=== PATIENT | male | born 1945 | race Caucasian/White ===

== ENCOUNTER 2016-08-05 14:01 | Outpatient (CLI) | payer MEDICARE | END 2016-08-05 14:02 | disposition home or self-care (01) | DX: I10 Essential (primary) hypertension (principal) ==

== ENCOUNTER 2016-08-12 14:56 | Outpatient (CLI) | payer MEDICARE | END 2016-08-12 14:57 | disposition home or self-care (01) | DX: E03.9 Hypothyroidism, unspecified (principal) ==

== ENCOUNTER 2016-12-02 09:16 | Outpatient (CLI) | payer MEDICARE ==
[2016-12-02] MEDS ORDERED: BARIUM SULFATE 135 ML BOTTLE PO ONE (10:06)
[2016-12-02] MEDS ORDERED: BARIUM SULFATE 148 GM POWDER PO ONE (10:06)
--- NOTE | 2016-12-02 17:28 | XRAY Report ---
ESOPHAGRAM: 12/02/2016 CLINICAL INDICATION: Mid sternal discomfort. Esophagram was performed in the upright and prone positions. The esophagus is normal in caliber. Te rtiary contractions are seen. There is a small sliding hiatal hernia, which produced reflux during t he course of the study, as well as intraesophageal reflux up to the upper esophageal sphincter. No e sophageal ulceration, mass lesion, or stricturing is identified. The hypopharynx appears unremarkabl e. IMPRESSION: SMALL SLIDING HIATAL HERNIA, PRODUCING REFLUX. PRESBYESOPHAGUS. FLUOROSCOPY TIME: 1 minute 57 seconds; 21 spot images obtained. JOB #: [id number] EXT JOB #:[id number]
== END 2016-12-02 09:17 | disposition home or self-care (01) ==
LOC: DI 09:16
PROVIDERS: ATTEND Surgery
DX: K44.9 Diaphragmatic hernia without obstruction or gangrene (principal); K21.9 Gastro-esophageal reflux disease without esophagitis; K22.8 Other specified diseases of esophagus
CPT/HCPCS: 74220; A9270

== ENCOUNTER 2016-12-20 21:08 | Outpatient (CLI) | payer MEDICARE | END 2016-12-20 21:09 | disposition short-term general hospital (02) | LOC: EMS 21:08 | PROVIDERS: ATTEND Surgery | DX: R07.9 Chest pain, unspecified (principal) | CPT/HCPCS: A0425; A0427 ==

== ENCOUNTER 2016-12-28 10:17 | Outpatient (CLI) | payer MEDICARE | END 2016-12-28 10:18 | disposition home or self-care (01) | LOC: SC 10:17 | PROVIDERS: ATTEND Internal Medicine Pulmonary Disease | DX: R06.83 Snoring (principal); G47.8 Other sleep disorders; I48.91 Unspecified atrial fibrillation | CPT/HCPCS: 99203; G0463; 99212 ==

== ENCOUNTER 2017-03-11 21:33 | Outpatient (CLI) | payer MEDICARE | END 2017-03-11 21:34 | disposition home or self-care (01) | LOC: SC 21:33 | PROVIDERS: ATTEND Internal Medicine Pulmonary Disease | DX: G47.61 Periodic limb movement disorder (principal) | CPT/HCPCS: 95810 ==

== ENCOUNTER 2017-04-13 09:23 | Outpatient (CLI) | payer MEDICARE | END 2017-04-13 09:24 | disposition home or self-care (01) | LOC: SC 09:23 | PROVIDERS: ATTEND Nurse Practitioner Family | DX: G47.61 Periodic limb movement disorder (principal); I48.91 Unspecified atrial fibrillation | CPT/HCPCS: 99214; G0463; 99212 ==

== ENCOUNTER 2017-10-25 08:00 | Outpatient (CLI) | payer MEDICARE ==
[2017-10-25 17:55] LABS: BASOPHILS % (AUTO) 0.7 %; EOSINOPHILS # (AUTO) 0.1 10^3/uL (0.0-0.7); EOSINOPHILS % (AUTO) 2.6 %; HGB - HEMOGLOBIN 14.5 g/dL (14.0-18.0); LYMPHOCYTES # (AUTO) 1.9 10^3/uL (1.5-3.5); LYMPHOCYTES % (AUTO) 38.9 %; MEAN CORPUSCULAR HEMOGLOBIN 31.3 pg (27.0-31.0); MEAN CORPUSCULAR VOLUME 95.1 fL (80.0-94.0); MEAN PLATELET VOLUME 8.1 fL (7.4-11.4); MONOCYTES # (AUTO) 0.5 10^3/uL (0.0-1.0); MONOCYTES % (AUTO) 9.5 %; NEUTROPHILS # (AUTO) 2.4 10^3/uL (1.5-6.6); NEUTROPHILS % (AUTO) 48.3 %; PLT - PLATELET COUNT 239 10^3/uL (130-450); RED BLOOD COUNT 4.61 10^6/uL (4.70-6.10); RED CELL DISTRIBUTION WIDTH 12.9 % (12.0-15.0); WHITE BLOOD COUNT 4.9 x10^3/uL (4.8-10.8)
[2017-10-25 18:52] LABS: FREE T3 3.55 pg/mL (2.5-3.9)
[2017-10-25 18:55] LABS: THYROID STIMULATING HORMONE 5.13 uIU/mL (0.34-5.60)
[2017-10-25 18:59] LABS: FREE T4 (FREE THYROXINE) 0.94 ng/dL (0.58-1.64)
[2017-10-25 19:00] LABS: ALBUMIN 4.2 g/dL (3.2-5.5); ALBUMIN/GLOBULIN RATIO 1.4 (1.0-2.2); ALKALINE PHOSPHATASE 45 IU/L (42-121); ALT ALANINE AMINOTRANSFERASE 17 IU/L (10-60); AST ASPARTATE AMINOTRANSFERASE 20 IU/L (10-42); BILIRUBIN,TOTAL 0.8 mg/dL (0.2-1.0); BUN - BLOOD UREA NITROGEN 19 mg/dL (6-20); CALCIUM 9.1 mg/dL (8.5-10.3); CARBON DIOXIDE - CO2 29 mmol/L (21-32); CHLORIDE 100 mmol/L (101-111); CHOL/HDL RATIO 3.6 (<5.0); CHOLESTEROL 200 mg/dL; GFR - MDRD 74 (>89); GLUCOSE 98 mg/dL (70-100); HDL CHOLESTEROL 56 mg/dL; LDL CHOLESTEROL,CALCULATED 132 mg/dL; LDL/HDL RATIO 2.4 (<3.6); SODIUM 135 mmol/L (135-145); TOTAL PROTEIN 7.2 g/dL (6.7-8.2); VLDL CHOLESTEROL 12 mg/dL
[2017-10-25 19:10] LABS: PSA SCREEN (Z12.5) < 0.008 ng/mL (0.000-2.000)
== END 2017-10-25 08:01 | disposition home or self-care (01) ==
LOC: LAB.S 08:00
PROVIDERS: ATTEND Nurse Practitioner Family
DX: I10 Essential (primary) hypertension (principal); Z12.5 Encounter for screening for malignant neoplasm of prostate; E03.9 Hypothyroidism, unspecified
CPT/HCPCS: 36415; 80053; 80061; 84439; 84443; 84481; 85025; G0103; 83721; 84153

== ENCOUNTER 2018-02-21 06:07 | Day surgery (SDC) | payer MEDICARE ==
[2018-02-21] MEDS ORDERED: ceFAZolin 2 GM/50 ML 2 GM/50 ML BAG IV ONE (06:18)
[2018-02-21] MEDS ORDERED: LACTATED RINGERS 1,000 ML IV ONE ×2 (06:40→08:57)
--- NOTE | 2018-02-21 07:11 | ANESTHESIA ---
Pre-Anesthesia VS, & Labs - Diagnosis right inguinal hernia - Procedure right inguinal hernia repair Vital Signs: Temp Pulse Resp BP Pulse Ox 36.6 C 50 L 18 142/94 H 97 02/21/18 06:26 02/21/18 06:26 02/21/18 06:26 02/21/18 06:26 02/21/18 06:26 Height 5 ft 11 in Weight (kg) 77.9 kg - NPO >8 hours - Lab Results Lab results reviewed: Yes Home Medications and Allergies Home Medications: Ambulatory Orders Medication Instructions Recorded Confirmed Aspirin [Valdez Chewable Aspirin] 81 mg PO DAILY 02/02/15 05/15/15 Flecainide [Tambocar] 100 mg PO DAILY 02/02/15 05/15/15 Felodipine [Felodipine ER] 10 mg PO 02/21/18 Levothyroxine [Synthroid] 88 mcg PO QDAC 02/21/18 02/21/18 Aspirin [Valdez Chewable Aspirin] 81 mg PO DAILY 02/02/15 Flecainide [Tambocar] 100 mg PO DAILY 02/02/15 Felodipine [Felodipine ER] 10 mg PO 02/21/18 Levothyroxine [Synthroid] 88 mcg PO QDAC 02/21/18 Allergies/Adverse Reactions: Allergies Allergy/AdvReac Type Severity Reaction Status Date / Time lisinopril Allergy Hives Verified 02/21/18 06:38 Anes History & Medical History - Anesthetic History Anesthesia Complications: reports: No previous complications Family history of Anesthesia Complications: Denies Family history of Malignant Hyperthermia: Denies - Medical History Cardiovascular: reports: Congestive heart failure, Hypertension, High cholesterol, Coronary artery disease, Atrial fibrillation, Other Pulmonary: reports: None Gastrointestinal: reports: None Urinary: Musculoskeletal: reports: Osteoarthritis Endocrine/Autoimmune: reports: None Skin: reports: None Smoking Status: Never smoker - Surgical History General: Other Urologic: Prostatic surgery Orthopedic: Knee replacement, Other Exam Dental: Other (implant) Mouth Openin Fingerbreadth Neck Mobility: Normal Mallampati classification: II Thyromental Distance: greater than 6 cm Respiratory: Lungs clear, Normal breath sounds, No respiratory distress, No accessory muscle use Cardiovascular: Regular rate, Normal S1, Normal S2, No murmurs Mental/Cognitive Status: Alert/Oriented X3, Normal for patient Cognitive Status: Within normal limits Plan Anesthesia Type: MAC Consent for Procedure(s) Verified and Reviewed: Yes Code Status: Attempt Resuscitation ASA classification: 2-Mild systemic disease Is this case an emergency?: No
[2018-02-21] MEDS ORDERED: LIDOCAINE 1%-EPI 1:100000 30 ML MDV ONE (07:20)
[2018-02-21] MEDS ORDERED: BUPIVACAINE 0.25% PF 30 ML VIAL ONE (07:21)
[2018-02-21] MEDS ORDERED: PROPOFOL 200 MG/20 ML VIAL IVP ONE (07:25)
[2018-02-21] MEDS ORDERED: fentaNYL 100 MCG/2 ML VIAL IVP ONE (07:25)
[2018-02-21] MEDS ORDERED: ONDANSETRON 4 MG/2 ML VIAL IVP ONE (07:25)
[2018-02-21] MEDS ORDERED: MIDAZOLAM 2 MG/2 ML VIAL IVP ONE (07:25)
[2018-02-21] MEDS ORDERED: KETOROLAC 30 MG/ML VIAL IVP ONE (07:25)
[2018-02-21] MEDS ORDERED: LIDOCAINE-MPF 2% 5 ML VIAL IM ONE (07:25)
[2018-02-21] MEDS ORDERED: BUPIVACAINE 0.5% PF 30 ML VIAL ONE (07:27)
[2018-02-21] MEDS ORDERED: ceFAZolin 1 GM VIAL ONE (07:40)
[2018-02-21] MEDS ORDERED: LIDOCAINE MPF 1%-EPI 1:200000 30 ML VIAL SUBQ ONE ×2 (07:50)
[2018-02-21] MEDS ORDERED: BUPIVACAINE 0.5% PF 30 ML VIAL INFIL ONE ×2 (07:50)
[2018-02-21] MEDS ORDERED: ONDANSETRON 4 MG/2 ML VIAL IVP PRN (08:52)
[2018-02-21] MEDS ORDERED: oxyCODONE 5 MG TABLET PO PRN (08:52)
[2018-02-21] MEDS ORDERED: ACETAMINOPHEN 325 MG TABLET PO PRN (08:52)
[2018-02-21] MEDS ORDERED: IBUPROFEN 600 MG TABLET PO PRN (08:52)
[2018-02-21] MEDS ORDERED: oxyCODONE 5 MG TABLET ONE (09:23)
[2018-02-21 09:26] VITALS: BP 147/82
--- NOTE | 2018-02-21 10:05 | OPERATIVE REPORT ---
DATE OF SERVICE: 02/21/2018 Physician: Jose Juan Bailey MD PREOPERATIVE DIAGNOSIS: Symptomatic right inguinal hernia. POSTOPERATIVE DIAGNOSES 1. Symptomatic right inguinal hernia, indirect. 2. Subcutaneous lipoma. NAME OF PROCEDURE 1. Open repair of right inguinal hernia with Bard soft tissue mesh. 2. Excision of subcutaneous lipoma. SURGEON: Jose Juan Bailey M.D. ANESTHESIA: Local plus monitored anesthesia care by Ang Wang CRNA. ESTIMATED BLOOD LOSS: Less than 10 mL COMPLICATIONS: None. FINDINGS: Approximately a 3-4 cm diameter subcutaneous lipoma was present deep to Kevin fascia and anterior to the external oblique aponeurosis. A small indirect right inguinal hernia was identified. There was no evidence of direct or femoral hernia clinically. INDICATIONS: Patient is a 72-year-old gentleman with a history of a painful right groin bulge. Exam ination revealed a reducible right inguinal hernia. He was advised to undergo repair. TECHNIQUE: After informed consent and preoperative preparation including administration of sequentia l calf compression boots and 2 grams of cefazolin intravenously within an hour of the incision, he wa s taken to the operating room and placed supine. His groin had been clipped and was prepared with io doform solution, following which a right groin block was instituted using a 50:50 combination of 0.5% plain and 1% lidocaine with epinephrine. A total of 40 mL of the mixture was used. The right groin was then re-prepared with ChloraPrep solution and draped in the usual sterile fashion. A transverse incision was made in the skin lines of the right groin, extending laterally approximately 4-5 cm. H emostasis was achieved with electrocautery and 2-0 Vicryl ties. The incision was carried down throug h subcutaneous tissues where the subcutaneous lipoma was identified. It was excised from the [facility] subcutaneous fat sharply and sent to Pathology. Hemostasis was achieved with electrocautery. T he external oblique aponeurosis was then exposed, and then incised along the lines of its fibers in s uch a manner to open the external ring and expose the internal ring. The spermatic cord was mobilize d and encircled with a Kanaranzi drain. The ilioinguinal nerve was divided to avoid entrapment and inj ury. The cord was carefully dissected, isolating a small indirect sac, free from surrounding cord st ructures to the level of the internal ring. The sac was opened and an attempt was made to place a fi nger into the peritoneal cavity, but the neck of the sac was too small to permit same. The sac was t wisted and highly ligated with 3-0 silk suture ligature, then amputated distal to the tie. After hem ostasis was ensured, the wound was irrigated with antibiotic saline containing a gram of Ancef per li ter, following which a precut slotted expanded polypropylene Bard mesh was soaked in the antibiotic s olution, brought onto the field, placed over the inguinal floor and secured in place with 4-0 Prolene suture in a continuous fashion, securing the mesh to the inferior edge of the Poupart ligament infer iorly and to the internal oblique aponeurosis laterally and superiorly, and to the lateral border of the rectus sheath medially. Care was taken to avoid excessive tightening of the patch around the cor d at the level of the internal ring. Hemostasis was ensured. The wound was then irrigated with anti biotic solution, following which wound closure was accomplished in layers using continuous 2-0 Vicryl to reapproximate the external oblique aponeurosis overlying the cord, followed by 3-0 Vicryl to reap proximate Kevin fascia and then a 4-0 Monocryl subcuticular skin closure, followed by Dermabond. Th e procedure was terminated and patient was transferred out of the operating room in satisfactory cond ition. Sponge and needle counts were correct x2. No drains were used. TD: 02/21/2018 09:38
== END 2018-02-21 06:08 | disposition home or self-care (01) ==
LOC: SDS 06:07
PROVIDERS: ATTEND Internal Medicine Gastroenterology
PROC: 0YU50JZ Supplement Right Inguinal Region with Synthetic Substitute, Open Approach (ICD-10-PCS; principal; 2018-02-21 07:30)
DX: K40.90 Unilateral inguinal hernia, without obstruction or gangrene, not specified as recurrent (principal); D17.1 Benign lipomatous neoplasm of skin and subcutaneous tissue of trunk; I11.0 Hypertensive heart disease with heart failure; I50.9 Heart failure, unspecified; G47.33 Obstructive sleep apnea (adult) (pediatric); I48.91 Unspecified atrial fibrillation; I25.10 Atherosclerotic heart disease of native coronary artery without angina pectoris; E03.9 Hypothyroidism, unspecified; Z79.82 Long term (current) use of aspirin; Z80.0 Family history of malignant neoplasm of digestive organs; Z79.899 Other long term (current) drug therapy
CPT/HCPCS: 49505; A9270; C1781; J0690; J7120

== ENCOUNTER 2018-10-28 07:54 | Outpatient (CLI) | payer MEDICARE ==
[2018-10-28 10:53] LABS: BASOPHILS % (AUTO) 0.9 %; EOSINOPHILS # (AUTO) 0.2 10^3/uL (0.0-0.7); EOSINOPHILS % (AUTO) 3.9 %; HGB - HEMOGLOBIN 14.8 g/dL (14.0-18.0); LYMPHOCYTES # (AUTO) 1.7 10^3/uL (1.5-3.5); LYMPHOCYTES % (AUTO) 36.7 %; MEAN CORPUSCULAR HGB CONC 33.8 g/dL (32.0-36.0); MEAN CORPUSCULAR VOLUME 94.6 fL (80.0-94.0); MEAN PLATELET VOLUME 7.6 fL (7.4-11.4); MONOCYTES # (AUTO) 0.5 10^3/uL (0.0-1.0); MONOCYTES % (AUTO) 9.6 %; NEUTROPHILS # (AUTO) 2.3 10^3/uL (1.5-6.6); NEUTROPHILS % (AUTO) 48.9 %; PLT - PLATELET COUNT 253 10^3/uL (130-450); RED BLOOD COUNT 4.63 10^6/uL (4.70-6.10); RED CELL DISTRIBUTION WIDTH 12.9 % (12.0-15.0); WHITE BLOOD COUNT 4.7 x10^3/uL (4.8-10.8)
[2018-10-28 11:19] LABS: ALBUMIN 4.1 g/dL (3.2-5.5); ALBUMIN/GLOBULIN RATIO 1.2 (1.0-2.2); ALKALINE PHOSPHATASE 42 IU/L (42-121); ALT ALANINE AMINOTRANSFERASE 20 IU/L (10-60); AST ASPARTATE AMINOTRANSFERASE 20 IU/L (10-42); BILIRUBIN,TOTAL 1.2 mg/dL (0.2-1.0); BUN - BLOOD UREA NITROGEN 23 mg/dL (6-20); CARBON DIOXIDE - CO2 25 mmol/L (21-32); CHLORIDE 103 mmol/L (101-111); CHOL/HDL RATIO 3.6 (<5.0); CHOLESTEROL 230 mg/dL; CREATININE 0.9 mg/dL (0.6-1.2); GFR - MDRD 83 (>89); GLUCOSE 99 mg/dL (70-100); HDL CHOLESTEROL 64 mg/dL; LDL CHOLESTEROL,CALCULATED 153 mg/dL; LDL/HDL RATIO 2.4 (<3.6); SODIUM 138 mmol/L (135-145); TOTAL PROTEIN 7.4 g/dL (6.7-8.2); VLDL CHOLESTEROL 13 mg/dL
[2018-10-28 11:26] LABS: HB2 TOTAL 15.4 g/dL; HEMOGLOBIN A1C 0.61 g/dL; HEMOGLOBIN A1C % 5.8 % (4.6-6.2)
== END 2018-10-28 07:55 | disposition home or self-care (01) ==
LOC: LAB.F 07:54
PROVIDERS: ATTEND Registered Nurse
DX: R00.1 Bradycardia, unspecified (principal); G47.33 Obstructive sleep apnea (adult) (pediatric); I10 Essential (primary) hypertension; E03.9 Hypothyroidism, unspecified; I48.91 Unspecified atrial fibrillation; C61 Malignant neoplasm of prostate
CPT/HCPCS: 36415; 80061; 83036; G0103; 80053; 83721; 84153; 84443; 85025

== ENCOUNTER 2018-12-27 07:50 | Outpatient (CLI) | payer MEDICARE | END 2018-12-27 07:51 | disposition home or self-care (01) | LOC: LAB.S 07:50 | PROVIDERS: ATTEND Internal Medicine Endocrinology, Diabetes & Metabolism | DX: E03.9 Hypothyroidism, unspecified (principal) | CPT/HCPCS: 36415; 84443 ==

== ENCOUNTER 2019-10-11 12:15 | Emergency (ER) | payer MEDICARE ==
[2019-10-11 12:34] VITALS: BP 141/78
--- NOTE | 2019-10-11 13:13 | ED Physician Documentation ---
PD HPI UPPER EXT INJURY - Stated complaint Stated Complaint: THUMB LAC - Chief complaint Chief Complaint: Laceration - History obtained from History obtained from: Patient - History of Present Illness Location: Right, Finger (thumb) Type of injury: Laceration (from edge of metal) Where injury occurred: Work Timing - onset: Today Timing - details: Abrupt onset Worsened by: Palpating Associated symptoms: Other (still bleeding without direct pressure). No: Weakness, Numbness Similar symptoms before: Has not had sx before Review of Systems Skin: reports: Laceration (s) Neurologic: denies: Focal weakness, Numbness PD PAST MEDICAL HISTORY - Past Medical History Past Medical History: Yes Cardiovascular: Congestive heart failure, Hypertension, High cholesterol, Coronary artery disease, Atrial fibrillation, Other Respiratory: None Endocrine/Autoimmune: None GI: None :  HEENT: None Psych: None Musculoskeletal: Osteoarthritis Derm: None - Past Surgical History Past Surgical History: No General: Other Ortho: Knee replacement, Other - Present Medications Home Medications: Ambulatory Orders Medication Instructions Recorded Confirmed Aspirin [Valdez Chewable Aspirin] 81 mg PO DAILY 02/02/15 05/15/15 Flecainide [Tambocar] 100 mg PO DAILY 02/02/15 05/15/15 Felodipine [Felodipine ER] 10 mg PO 02/21/18 Levothyroxine [Synthroid] 88 mcg PO QDAC 02/21/18 02/21/18 - Allergies Allergies/Adverse Reactions: Allergies Allergy/AdvReac Type Severity Reaction Status Date / Time lisinopril Allergy Hives Verified 10/11/19 12:34 - Social History Does the pt smoke?: No Smoking Status: Never smoker Does the pt drink ETOH?: No Does the pt have substance abuse?: No - Immunizations Immunizations are current?: Yes - POLST Patient has POLST: No PD ED PE NORMAL - Vitals Vital signs reviewed: Yes - General General: Alert and oriented X 3, No acute distress, Well developed/nourished - Derm Derm: Normal color, Warm and dry - Extremities Extremities: Other (right thumb with stellate lac on volar pad distal phalanx. Normal flexion at IP. No nailbed involvement nor FB. Mild bleeding still. Some of the skin at edge is thin and not viable for 2 mm or so. ) - Neuro Neuro: Alert and oriented X 3, No motor deficit, No sensory deficit Results - Vitals Vitals: Vital Signs - 24 hr 05/20/20 12:32 Temperature 36.4 C L Heart Rate 56 L Respiratory 14 Rate Blood Pressure 141/78 H O2 Saturation 97 Oxygen O2 Source Room air Procedures - Laceration (location) right thumb distal pad Length in cm: 1.5 Wound type: Stellate, Into subcut fat, Clean Anesthesia: Lidocaine 2% Wound Preparation: Wound explored, To the base. No: FB identified Skin layer closure: Nylon, Interrupted, Size #-0 - enter number (4) Other: Patient tolerated well, No complications, Neurovascular intact, Dressing applied, Tetanus booster given Complexity: Simple PD MEDICAL DECISION MAKING - ED course Complexity details: considered differential (stellate lac with still some bleeding, needed sutures for best closure. ), d/w patient Departure - Departure Disposition: 01 Home, Self Care Clinical Impression: Thumb laceration Qualifiers: Encounter type: initial encounter Damage to nail status: without damage Foreign body presence: without foreign body Laterality: right Qualified Code(s): S61.011A - Laceration without foreign body of right thumb without damage to nail, initial encounter Condition: Stable Record reviewed to determine appropriate education?: Yes Instructions: ED Laceration Hand Follow-Up: Mary Smith ARNP [Primary Care Provider] - Comments: It is okay to wash and shower. Clean off the wound twice a day with soap and water, or peroxide and water. Apply some antibiotic ointment to it to keep it moist. Also to watch for signs of infection such as purulence, redness or increasing pain. Return to your primary care or the ER at the specified time for suture removal. Suture removal 9 to 10 days. Tylenol or ibuprofen as needed for pains. Activity with this with the protected with bandaging but within the confines of comfort. Discharge Date/Time: 10/11/19 14:03
[2019-10-11] MEDS ORDERED: LIDOCAINE 2% 50 ML MDV SUBQ STA (13:18)
[2019-10-11] MEDS ORDERED: TETANUS/DIPHTHERIA/PERTUSSIS 0.5 ML SYRINGE IM ONE (13:18)
[2019-10-11] MEDS ORDERED: LIDOCAINE-MPF 2% 5 ML VIAL SUBQ STA (13:21)
== END 2019-10-11 14:03 | disposition home or self-care (01) ==
LOC: ED 12:15
DX: S61.011A Laceration without foreign body of right thumb without damage to nail, initial encounter (principal); W26.8XXA Contact with other sharp object(s), not elsewhere classified, initial encounter; Y93.89 Activity, other specified; I10 Essential (primary) hypertension
CPT/HCPCS: 12001; 90471; 99282; 99283

== ENCOUNTER 2019-11-21 09:17 | Emergency (ER) | payer MEDICARE ==
[2019-11-21] MEDS ORDERED: DILTIAZEM 50 MG/10 ML VIAL IVP ONE ×3 (09:48→12:31)
[2019-11-21 09:51] LABS: BASOPHILS % (AUTO) 0.5 %; EOSINOPHILS # (AUTO) 0.1 10^3/uL (0.0-0.7); EOSINOPHILS % (AUTO) 1.1 %; HGB - HEMOGLOBIN 17.1 g/dL (14.0-18.0); LYMPHOCYTES # (AUTO) 1.7 10^3/uL (1.5-3.5); LYMPHOCYTES % (AUTO) 27.6 %; MEAN CORPUSCULAR HEMOGLOBIN 31.3 pg (27.0-31.0); MEAN CORPUSCULAR HGB CONC 33.6 g/dL (32.0-36.0); MEAN CORPUSCULAR VOLUME 93.2 fL (80.0-94.0); MEAN PLATELET VOLUME 8.8 fL (7.4-11.4); MONOCYTES # (AUTO) 0.5 10^3/uL (0.0-1.0); MONOCYTES % (AUTO) 7.9 %; NEUTROPHILS # (AUTO) 3.8 10^3/uL (1.5-6.6); NEUTROPHILS % (AUTO) 62.4 %; PLT - PLATELET COUNT 292 10^3/uL (130-450); RED BLOOD COUNT 5.46 10^6/uL (4.70-6.10); RED CELL DISTRIBUTION WIDTH 12.3 % (12.0-15.0); WHITE BLOOD COUNT 6.1 x10^3/uL (4.8-10.8)
[2019-11-21 09:57] LABS: BILIRUBIN,URINE NEGATIVE (NEGATIVE); GLUCOSE, URINE (UA) NEGATIVE (NEGATIVE); KETONES,URINE (UA) NEGATIVE (NEGATIVE); LEUKOCYTE ESTERASE, URINE NEGATIVE (NEGATIVE); NITRITE,URINE NEGATIVE (NEGATIVE); OCCULT BLOOD,URINE NEGATIVE (NEGATIVE); PROTEIN,URINE NEGATIVE (NEGATIVE); UROBILINOGEN,URINE 0.2 (NORMAL) E.U./dL (NORMAL)
[2019-11-21 09:58] LABS: CLARITY,URINE CLEAR (CLEAR)
[2019-11-21 10:13] LABS: ALBUMIN 4.9 g/dL (3.2-5.5); ALBUMIN/GLOBULIN RATIO 1.6 (1.0-2.2); BILIRUBIN,TOTAL 1.3 mg/dL (0.2-1.0); CALCIUM 9.3 mg/dL (8.5-10.3); CREATININE 0.9 mg/dL (0.6-1.2)
--- NOTE | 2019-11-21 10:53 | XRAY Report ---
PROCEDURE: Chest 1 View X-Ray INDICATIONS: chest pain TECHNIQUE: One view of the chest was acquired. COMPARISON: 02/02/2015 chest radiograph FINDINGS: Surgical changes and devices: None. Lungs and pleura: No pleural effusions or pneumothorax. Lungs are clear. Mediastinum: Mediastinal contours appear normal. Heart size is normal. Bones and chest wall: No suspicious bony lesions. Overlying soft tissues appear unremarkable. IMPRESSION: No acute cardiac pulmonary process or significant change from prior study. Reviewed by: Federico Arevalo MD on 11/21/2019 10:52 AM PDT Approved by: Federico Arevalo MD on 11/21/2019 10:52 AM PDT Station ID: [id number]
--- NOTE | 2019-11-21 10:56 | ED Physician Documentation ---
History of Present Illness - Stated complaint Stated Complaint: RAPID PULSE - Chief complaint Chief Complaint: Cardiac - History obtained from History obtained from: Patient, Family - History of Present Illness Timing: Today - Additonal information Additional information: 2-3 hours of rapid irregular heart rate. Denies chest pain. Review of Systems Constitutional: denies: Fever Eyes: denies: Decreased vision Ears: denies: Ear pain Nose: denies: Rhinorrhea / runny nose, Congestion Throat: denies: Sore throat Cardiac: reports: Palpitations. denies: Chest pain / pressure Respiratory: reports: Dyspnea. denies: Cough, Wheezing GI: denies: Abdominal Pain, Nausea, Vomiting : denies: Dysuria PD PAST MEDICAL HISTORY - Past Medical History Past Medical History: Yes Cardiovascular: Congestive heart failure, Hypertension, High cholesterol, Coronary artery disease, Atrial fibrillation, Other Respiratory: None Neuro: None Endocrine/Autoimmune: None GI: None : None HEENT: None Psych: None Musculoskeletal: Osteoarthritis Derm: None - Past Surgical History Past Surgical History: No General: Other Ortho: Knee replacement, Other - Present Medications Home Medications: Ambulatory Orders Medication Instructions Recorded Confirmed Flecainide [Tambocar] 100 mg PO BID 02/02/15 11/21/19 Felodipine [Felodipine ER] 10 mg PO DAILY 02/21/18 11/21/19 Levothyroxine [Synthroid] 112 mcg PO QDAC 02/21/18 11/21/19 - Allergies Allergies/Adverse Reactions: Allergies Allergy/AdvReac Type Severity Reaction Status Date / Time lisinopril Allergy Hives Verified 10/11/19 12:34 losartan [From Cozaar] Allergy Unknown Verified 10/12/19 08:42 - Social History Does the pt smoke?: No Smoking Status: Never smoker Does the pt drink ETOH?: No Does the pt have substance abuse?: No - Immunizations Immunizations are current?: Yes - POLST Patient has POLST: No PD ED PE NORMAL - Vitals Vital signs reviewed: Yes (tachy ) - General General: Alert and oriented X 3, No acute distress, Well developed/nourished - HEENT HEENT: Atraumatic, PERRL, EOMI - Neck Neck: Supple, no meningeal sign, No bony TTP - Cardiac Cardiac: No murmur, Other (tachy and over 150 seems regular ) - Respiratory Respiratory: No respiratory distress, Clear bilaterally - Abdomen Abdomen: Soft - Back Back: No CVA TTP, No spinal TTP - Derm Derm: Normal color, Warm and dry, No rash - Extremities Extremities: No deformity, No edema, No calf tenderness / cord - Neuro Neuro: Alert and oriented X 3, 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, No motor deficit, No sensory deficit, Normal speech Eye Opening: Spontaneous Motor: Obeys Commands Verbal: Oriented GCS Score: 15 - Psych Psych: Normal mood, Normal affect Results - Vitals Vitals: Vital Signs - 24 hr 11/21/19 11/21/19 11/21/19 09:20 09:45 10:06 Temperature 36.8 C Heart Rate 165 H 122 H 91 Respiratory 16 18 15 Rate Blood Pressure 104/72 114/104 H 107/91 H O2 Saturation 98 97 97 11/21/19 11/21/19 11/21/19 10:23 10:30 11:00 Temperature Heart Rate 107 H 89 86 Respiratory 16 11 L 19 Rate Blood Pressure 112/84 H 110/86 H 110/90 H O2 Saturation 98 96 97 11/21/19 11/21/19 11/21/19 11:30 12:00 12:40 Temperature Heart Rate 91 89 88 Respiratory 11 L 15 13 Rate Blood Pressure 121/80 121/92 H 112/73 O2 Saturation 96 98 97 11/21/19 13:09 Temperature 36.5 C Heart Rate 58 L Respiratory 16 Rate Blood Pressure 123/70 O2 Saturation 98 Oxygen O2 Source Room air - EKG (time done) 0932 Rate: Rate (enter#) (165), Tachy (with wide complex) Intervals: Wide QRS, RBBB Compare to prior EKG: Changed from prior EKG (SPT 12-20-16 the rhythm has changed to afib and compared to 02-02-2015 the rhythm and rate were similar. ) Computer interpretation: Agree with computer 0944 Rate: Rate (enter#) (119) Intervals: Wide QRS, RBBB Compare to prior EKG: Unchanged from prior EKG (SPT at 0932 no significant change) Computer interpretation: Disagree with computer (I do not see ST elevation in the tracing) 1158 Rate: Rate (enter#) (85) Rhythm: Atrial fibrillation Intervals: RBBB Compare to prior EKG: Changed from prior EKG (SPT 0944 today the rate is dramatically improved the rhytm remains afib, QRS duration is shorter. ) Computer interpretation: Agree with computer - Labs Labs: Laboratory Tests 11/21/19 11/21/19 11/21/19 09:30 09:35 09:35 WBC 6.1 RBC 5.46 Hgb 17.1 Hct 50.9 MCV 93.2 MCH 31.3 H MCHC 33.6 RDW 12.3 Plt Count 292 MPV 8.8 Neut # (Auto) 3.8 Lymph # (Auto) 1.7 Hendricks # (Auto) 0.5 Eos # (Auto) 0.1 Baso # (Auto) 0.0 Absolute Nucleated RBC 0.00 Nucleated RBC % 0.0 Sodium 139 Potassium 3.7 Chloride 103 Carbon Dioxide 28 Anion Gap 8.0 BUN 24 H Creatinine 0.9 Estimated GFR (MDRD) 83 L Glucose 128 H Calcium 9.3 Total Bilirubin 1.3 H AST 18 ALT 18 Alkaline Phosphatase 44 Troponin I High Sens B-Natriuretic Peptide Total Protein 8.0 Albumin 4.9 Globulin 3.1 Albumin/Globulin Ratio 1.6 Lipase 29 Urine Color YELLOW Urine Clarity CLEAR Urine pH 7.0 Ur Specific [place] 1.010 Urine Protein NEGATIVE Urine Glucose (UA) NEGATIVE Urine Ketones NEGATIVE Urine Occult Blood NEGATIVE Urine Nitrite NEGATIVE Urine Bilirubin NEGATIVE Urine Urobilinogen 0.2 (NORMAL) Ur Leukocyte Esterase NEGATIVE Ur Microscopic Review NOT INDICATED Urine Culture Comments NOT INDICATED 11/21/19 11/21/19 09:35 09:35 WBC RBC Hgb Hct MCV MCH MCHC RDW Plt Count MPV Neut # (Auto) Lymph # (Auto) Hendricks # (Auto) Eos # (Auto) Baso # (Auto) Absolute Nucleated RBC Nucleated RBC % Sodium Potassium Chloride Carbon Dioxide Anion Gap BUN Creatinine Estimated GFR (MDRD) Glucose Calcium Total Bilirubin AST ALT Alkaline Phosphatase Troponin I High Sens 6.0 B-Natriuretic Peptide 56 Total Protein Albumin Globulin Albumin/Globulin Ratio Lipase Urine Color Urine Clarity Urine pH Ur Specific [place] Urine Protein Urine Glucose (UA) Urine Ketones Urine Occult Blood Urine Nitrite Urine Bilirubin Urine Urobilinogen Ur Leukocyte Esterase Ur Microscopic Review Urine Culture Comments - Rads (name of study) chest Radiology: Prelim report reviewed (Impression: No acute cardiopulmonary process or significant change from prior study.), EMP read indepedently, See rad report PD MEDICAL DECISION MAKING - ED course Complexity details: reviewed old records, reviewed results, re-evaluated patient, considered differential, d/w patient, d/w family ED course: 74-year-old male with a history of intermittent atrial fibrillation with rapid ventricular response is developed a rapid ventricular response this morning for which she feels mildly short of breath with exertion and he does feel the palpitations. He arrives to the emergency department with a heart rate of 165 his complexes are wide and there was concern for ventricular tachycardia. This however was not the case and the patient was administered diltiazem 20 mg intravenously with reduction in his rate but this was inadequate and a second 25 mg and fusion was performed reducing his rate under 100 he did look like he was going to convert but ultimately remained in atrial fibrillation. His heart rate crept back up over 100 he was given a second 25 mg diltiazem infusion and rate then was under 80. He was discharged to home with atrial fibrillation with controlled rate. Departure - Departure Disposition: 01 Home, Self Care Clinical Impression: Atrial fibrillation with RVR Condition: Stable Instructions: ED Afib Follow-Up: Mary Smith ARNP [Primary Care Provider] - Discharge Date/Time: 11/21/19 13:24
[2019-11-21] MEDS ORDERED: SODIUM CHLORIDE 0.9% 1,000 ML IV STA (11:00)
[2019-11-21 13:11] VITALS: BP 123/70
== END 2019-11-21 13:24 | disposition home or self-care (01) ==
LOC: ED 09:17
DX: I48.20 Chronic atrial fibrillation, unspecified (principal); I45.10 Unspecified right bundle-branch block; I10 Essential (primary) hypertension; I25.10 Atherosclerotic heart disease of native coronary artery without angina pectoris
CPT/HCPCS: 36415; 71045; 80053; 81001; 81003; 83690; 83880; 84484; 85025; 87086; 93005; 96361; 96374; 96376; 99283

== ENCOUNTER 2019-11-22 08:26 | Outpatient (CLI) | payer MEDICARE | END 2019-11-22 08:27 | disposition EMS.NT | LOC: EMS 08:26 | PROVIDERS: ATTEND Surgery | DX: R00.0 Tachycardia, unspecified (principal) ==

== ENCOUNTER 2019-12-01 07:11 | Outpatient (CLI) | payer MEDICARE ==
[2019-12-01 15:47] LABS: THYROID STIMULATING HORMONE 8.74 uIU/mL (0.34-5.60)
[2019-12-01 15:49] LABS: FREE T4 (FREE THYROXINE) 1.25 ng/dL (0.58-1.64)
== END 2019-12-01 07:12 | disposition home or self-care (01) ==
LOC: LAB.S 07:11
PROVIDERS: ATTEND Family Medicine
DX: E03.9 Hypothyroidism, unspecified (principal)
CPT/HCPCS: 36415; 84439; 84443

== ENCOUNTER 2020-02-12 08:12 | Outpatient (CLI) | payer MEDICARE | END 2020-02-12 08:13 | disposition home or self-care (01) | LOC: LAB.S 08:12 | PROVIDERS: ATTEND Internal Medicine Endocrinology, Diabetes & Metabolism | DX: E03.9 Hypothyroidism, unspecified (principal) | CPT/HCPCS: 36415; 84443 ==

== ENCOUNTER 2020-06-14 08:32 | Outpatient (CLI) | payer MEDICARE ==
[2020-06-14 14:23] LABS: BASOPHILS % (AUTO) 0.6 %; EOSINOPHILS # (AUTO) 0.1 10^3/uL (0.0-0.7); EOSINOPHILS % (AUTO) 1.7 %; HGB - HEMOGLOBIN 15.5 g/dL (14.0-18.0); LYMPHOCYTES # (AUTO) 1.6 10^3/uL (1.5-3.5); LYMPHOCYTES % (AUTO) 33.6 %; MEAN CORPUSCULAR HEMOGLOBIN 32.2 pg (27.0-31.0); MEAN CORPUSCULAR HGB CONC 33.5 g/dL (32.0-36.0); MEAN CORPUSCULAR VOLUME 96.1 fL (80.0-94.0); MEAN PLATELET VOLUME 9.3 fL (7.4-11.4); MONOCYTES # (AUTO) 0.5 10^3/uL (0.0-1.0); MONOCYTES % (AUTO) 9.8 %; NEUTROPHILS # (AUTO) 2.5 10^3/uL (1.5-6.6); NEUTROPHILS % (AUTO) 54.1 %; PLT - PLATELET COUNT 259 10^3/uL (130-450); RED BLOOD COUNT 4.82 10^6/uL (4.70-6.10); RED CELL DISTRIBUTION WIDTH 12.6 % (12.0-15.0); WHITE BLOOD COUNT 4.7 x10^3/uL (4.8-10.8)
[2020-06-14 15:49] LABS: ALBUMIN 4.3 g/dL (3.2-5.5); ALBUMIN/GLOBULIN RATIO 1.3 (1.0-2.2); ALKALINE PHOSPHATASE 41 IU/L (42-121); ALT ALANINE AMINOTRANSFERASE 19 IU/L (10-60); AST ASPARTATE AMINOTRANSFERASE 19 IU/L (10-42); BILIRUBIN,TOTAL 1.2 mg/dL (0.2-1.0); BUN - BLOOD UREA NITROGEN 20 mg/dL (6-20); CALCIUM 9.2 mg/dL (8.5-10.3); CARBON DIOXIDE - CO2 26 mmol/L (21-32); CHLORIDE 104 mmol/L (101-111); CHOL/HDL RATIO 3.2 (<5.0); CHOLESTEROL 237 mg/dL; CREATININE 0.9 mg/dL (0.6-1.2); GLUCOSE 98 mg/dL (70-100); HDL CHOLESTEROL 74 mg/dL; LDL CHOLESTEROL,CALCULATED 150 mg/dL; TOTAL PROTEIN 7.6 g/dL (6.7-8.2); VLDL CHOLESTEROL 13 mg/dL
== END 2020-06-14 08:33 | disposition home or self-care (01) ==
LOC: LAB.S 08:32
PROVIDERS: ATTEND Registered Nurse
DX: R00.1 Bradycardia, unspecified (principal); E03.9 Hypothyroidism, unspecified; I48.91 Unspecified atrial fibrillation; C61 Malignant neoplasm of prostate; I10 Essential (primary) hypertension
CPT/HCPCS: 36415; 80053; 80061; 83721; 84153; 84443; 85025

== ENCOUNTER 2021-07-22 15:37 | Outpatient (CLI) | payer MEDICARE ==
--- NOTE | 2021-07-22 17:20 | XRAY Report ---
PROCEDURE: Elbow 2 View RT INDICATIONS: PAIN OF RIGHT ELBOW JOINT TECHNIQUE: 3 views of the elbow were acquired. COMPARISON: None FINDINGS: Bones: No acute fractures or dislocations. Well-corticated calcification along anterior aspect of di stal humerus and adjacent to the coronoid process suggestive of sequela from old injury. No suspiciou s bony lesions. Soft tissues: No elbow joint effusion. No suspicious soft tissue calcifications. IMPRESSION: Suggestion of old injury possibly involving coronoid process of proximal ulna as above. No acute frac ture or dislocation. No significant joint effusion. Reviewed by: Agus Sanchez MD on 07/22/2021 5:18 PM PST Approved by: Agus Sanchez MD on 07/22/2021 5:18 PM PST Station ID: [id number]
== END 2021-07-22 15:38 | disposition home or self-care (01) ==
LOC: DI.S 15:37
PROVIDERS: ATTEND Nurse Practitioner Family
DX: M25.521 Pain in right elbow (principal)

== ENCOUNTER 2021-10-09 12:01 | Day surgery (SDC) | payer MEDICARE ==
[2021-10-09] MEDS ORDERED: LACTATED RINGERS 1,000 ML IV ONE ×2 (12:38→14:00)
--- NOTE | 2021-10-09 13:00 | ANESTHESIA ---
Pre-Anesthesia VS, & Labs - Diagnosis history of colon cancer - Procedure colonoscopy Vital Signs: Temp Pulse Resp BP Pulse Ox 36.5 C 48 L 16 146/93 H 98 10/09/21 12:00 10/09/21 12:00 10/09/21 12:00 10/09/21 12:00 10/09/21 12:00 Height: 5 ft 11 in Weight (kg): 76.1 kg Body Mass Index: 23.3 BMI Classification: Healthy weight Home Medications and Allergies Home Medications: Ambulatory Orders Rivaroxaban [Xarelto] 20 mg PO DAILY 10/08/21 Flecainide [Tambocar] 100 mg PO BID 02/02/15 Felodipine [Felodipine ER] 10 mg PO DAILY 02/21/18 Levothyroxine [Synthroid] 112 mcg PO QDAC 02/21/18 Rivaroxaban [Xarelto] 20 mg PO DAILY 10/08/21 Allergies/Adverse Reactions: Allergies Allergy/AdvReac Type Severity Reaction Status Date / Time lisinopril Allergy Hives Verified 10/11/19 12:34 losartan [From Cozaar] Allergy Unknown Verified 10/12/19 08:42 Anes History & Medical History - Anesthetic History Anesthesia Complications: reports: No previous complications - Medical History Cardiovascular: reports: Hypertension, High cholesterol, Atrial fibrillation, Other Pulmonary: reports: None Gastrointestinal: reports: None Urinary: reports: None Neuro: reports: None Musculoskeletal: reports: Osteoarthritis Endocrine/Autoimmune: reports: None Blood Disorders: reports: None Skin: reports: None Smoking Status: Never smoker History of Cancer?: Yes - Surgical History General: reports: Other Urologic: reports: Prostatic surgery Orthopedic: reports: Knee replacement, Other Exam General: Alert, Oriented x3 Dental: WNL Mouth Opening: Greater than 4 Fingerbreadths Neck Mobility: Normal Mallampati classification: II Thyromental Distance: greater than 6 cm Respiratory: Lungs clear Cardiovascular: Regular rate, Normal S1, Normal S2 Mental/Cognitive Status: Alert/Oriented X3 Plan Anesthesia Type: Total IV Consent for Procedure(s) Verified and Reviewed: Yes Code Status: Attempt Resuscitation ASA classification: 2-Mild systemic disease Is this case an emergency?: No
[2021-10-09] MEDS ORDERED: PROPOFOL 500 MG/50 ML 500 MG/50 ML VIAL ONE (13:49)
[2021-10-09] MEDS ORDERED: GLYCOPYRROLATE 1 MG/5 ML VIAL ONE (13:49)
--- NOTE | 2021-10-09 14:20 | ANESTHESIA POST OP EVALUATION ---
Anesthesia Post Eval - Post Anesthesia Eval Vitals: Last Vital Signs Temp 36 C L 10/09/21 13:59 Pulse 58 L 10/09/21 13:59 Resp 16 10/09/21 13:59 BP 101/62 10/09/21 13:59 Pulse Ox 97 10/09/21 13:59 CV Function Including HR & BP: Stable Pain Control: Satisfactory Nausea & Vomiting: Negative Mental Status: Baseline Respiratory Status: Airway Patent Hydration Status: Satisfactory Anesthesia Complications: None
[2021-10-09 14:39] VITALS: BP 145/97
== END 2021-10-09 12:02 | disposition home or self-care (01) ==
LOC: SDS 12:01
PROVIDERS: ATTEND Surgery
DX: Z12.11 Encounter for screening for malignant neoplasm of colon (principal); K57.30 Diverticulosis of large intestine without perforation or abscess without bleeding; G47.33 Obstructive sleep apnea (adult) (pediatric); I48.91 Unspecified atrial fibrillation; Z80.0 Family history of malignant neoplasm of digestive organs
CPT/HCPCS: G0105; J7120

== ENCOUNTER 2021-10-15 07:36 | Outpatient (CLI) | payer MEDICARE ==
[2021-10-15 15:05] LABS: ALBUMIN 4.2 g/dL (3.2-5.5); ALBUMIN/GLOBULIN RATIO 1.2 (1.0-2.2); ALKALINE PHOSPHATASE 42 IU/L (42-121); ALT ALANINE AMINOTRANSFERASE 16 IU/L (10-60); AST ASPARTATE AMINOTRANSFERASE 19 IU/L (10-42); BUN - BLOOD UREA NITROGEN 21 mg/dL (6-20); CALCIUM 9.1 mg/dL (8.5-10.3); CARBON DIOXIDE - CO2 27 mmol/L (21-32); CHLORIDE 104 mmol/L (101-111); CHOL/HDL RATIO 2.6 (<5.0); CHOLESTEROL 202 mg/dL; CREATININE 0.8 mg/dL (0.6-1.2); GFR - MDRD 94 (>89); GLUCOSE 105 mg/dL (70-100); HDL CHOLESTEROL 77 mg/dL; LDL CHOLESTEROL,CALCULATED 111 mg/dL; LDL/HDL RATIO 1.4 (<3.6); POTASSIUM 3.7 mmol/L (3.5-5.0); SODIUM 138 mmol/L (135-145); TOTAL PROTEIN 7.6 g/dL (6.7-8.2); TRIGLYCERIDES 70 mg/dL; VLDL CHOLESTEROL 14 mg/dL
== END 2021-10-15 07:37 | disposition home or self-care (01) ==
LOC: LAB.S 07:36
PROVIDERS: ATTEND Nurse Practitioner Family
DX: E78.5 Hyperlipidemia, unspecified (principal)
CPT/HCPCS: 36415; 80053; 80061; 83721

== ENCOUNTER 2021-10-17 07:32 | Outpatient (CLI) | payer MEDICARE | END 2021-10-17 07:33 | disposition home or self-care (01) | LOC: LAB.S 07:32 | PROVIDERS: ATTEND Internal Medicine Clinical Cardiac Electrophysiology | DX: I48.0 Paroxysmal atrial fibrillation (principal) | CPT/HCPCS: 36415; 82565 ==

== ENCOUNTER 2021-12-18 07:20 | Outpatient (CLI) | payer MEDICARE ==
[2021-12-18 15:11] LABS: ALBUMIN 4.3 g/dL (3.2-5.5); ALBUMIN/GLOBULIN RATIO 1.5 (1.0-2.2); BILIRUBIN,TOTAL 0.8 mg/dL (0.2-1.0); CALCIUM 9.3 mg/dL (8.5-10.3); TOTAL PROTEIN 7.2 g/dL (6.7-8.2)
== END 2021-12-18 07:21 | disposition home or self-care (01) ==
LOC: LAB.S 07:20
PROVIDERS: ATTEND Internal Medicine Cardiovascular Disease
DX: Z51.81 Encounter for therapeutic drug level monitoring (principal); Z79.899 Other long term (current) drug therapy
CPT/HCPCS: 36415; 80053

== ENCOUNTER 2021-12-19 12:03 | Outpatient (CLI) | payer MEDICARE | END 2021-12-19 12:04 | disposition home or self-care (01) | LOC: RT 12:03 | PROVIDERS: ATTEND Internal Medicine Cardiovascular Disease | DX: Z51.81 Encounter for therapeutic drug level monitoring (principal); Z79.899 Other long term (current) drug therapy | CPT/HCPCS: 93005 ==

== ENCOUNTER 2022-01-25 06:19 | Emergency (ER) | payer MEDICARE ==
[2022-01-25 06:47] LABS: EOSINOPHILS # (AUTO) 0.1 10^3/uL (0.0-0.7); EOSINOPHILS % (AUTO) 2.4 %; HCT - HEMATOCRIT 48.4 % (42.0-52.0); HGB - HEMOGLOBIN 16.3 g/dL (14.0-18.0); LYMPHOCYTES # (AUTO) 1.6 10^3/uL (1.5-3.5); LYMPHOCYTES % (AUTO) 37.2 %; MEAN CORPUSCULAR HEMOGLOBIN 31.8 pg (27.0-31.0); MEAN CORPUSCULAR HGB CONC 33.7 g/dL (32.0-36.0); MEAN CORPUSCULAR VOLUME 94.3 fL (80.0-94.0); MEAN PLATELET VOLUME 9.5 fL (7.4-11.4); MONOCYTES # (AUTO) 0.4 10^3/uL (0.0-1.0); MONOCYTES % (AUTO) 10.3 %; NEUTROPHILS # (AUTO) 2.1 10^3/uL (1.5-6.6); NEUTROPHILS % (AUTO) 48.9 %; PLT - PLATELET COUNT 225 10^3/uL (130-450); RED BLOOD COUNT 5.13 10^6/uL (4.70-6.10); RED CELL DISTRIBUTION WIDTH 11.9 % (12.0-15.0); WHITE BLOOD COUNT 4.2 x10^3/uL (4.8-10.8)
[2022-01-25] MEDS ORDERED: diltiaZEM INJ 5 MG/ML VIAL IVP STA ×2 (06:52→07:18)
[2022-01-25 07:08] LABS: CALCIUM 9.4 mg/dL (8.5-10.3); CREATININE 0.8 mg/dL (0.6-1.2); POTASSIUM 3.9 mmol/L (3.5-5.0)
[2022-01-25] MEDS ORDERED: diltiaZEM CD 120 MG CAPSULE PO STA (07:17)
[2022-01-25] MEDS ORDERED: FLECAINIDE 50 MG TABLET PO STA (07:35)
--- NOTE | 2022-01-25 07:39 | ED Physician Documentation ---
History of Present Illness - Stated complaint Stated Complaint: IRREGULAR HEART BEAT - Chief complaint Chief Complaint: Cardiac - History obtained from History obtained from: Patient - Additonal information Additional information: The patient comes to the emergency department chief complaint of palpitations that started around 130 this morning. Patient has a longstanding history of atrial fibrillation which is normally well controlled with oral flecainide 100 mg twice daily. However, the patient states he ran out of it several days ago and that while he normally gets his refills in the mail, he has not yet received the refill on his flecainide. He denies any chest pain, shortness of breath, or lightheadedness. He is otherwise feeling fine. He states diltiazem was worked for him in the past as far as emergent rate control, though he has not needed this in very long time. No other complaints. Review of Systems Ten Systems: 10 systems reviewed and negative Constitutional: reports: Reviewed and negative Eyes: reports: Reviewed and negative Ears: reports: Reviewed and negative Nose: reports: Reviewed and negative Throat: reports: Reviewed and negative Cardiac: reports: Palpitations Respiratory: reports: Reviewed and negative GI: reports: Reviewed and negative : reports: Reviewed and negative Skin: reports: Reviewed and negative Musculoskeletal: reports: Reviewed and negative Neurologic: reports: Reviewed and negative Psychiatric: reports: Reviewed and negative Endocrine: reports: Reviewed and negative Immunocompromised: reports: Reviewed and negative PD PAST MEDICAL HISTORY - Past Medical History Cardiovascular: Hypertension, High cholesterol, Atrial fibrillation, Other Respiratory: None Neuro: None Endocrine/Autoimmune: None GI: None : None HEENT: None Psych: None Musculoskeletal: Osteoarthritis Derm: None - Past Surgical History Past Surgical History: No General: Other Ortho: Knee replacement, Other - Present Medications Home Medications: Ambulatory Orders Medication Instructions Recorded Confirmed Flecainide [Tambocar] 100 mg PO BID 02/02/15 10/08/21 Felodipine [Felodipine ER] 10 mg PO DAILY 02/21/18 10/08/21 Levothyroxine [Synthroid] 112 mcg PO QDAC 02/21/18 10/08/21 Rivaroxaban [Xarelto] 20 mg PO DAILY 10/08/21 10/08/21 Flecainide [Tambocar] 100 mg PO Q12H #14 tablet 01/25/22 - Allergies Allergies/Adverse Reactions: Allergies Allergy/AdvReac Type Severity Reaction Status Date / Time lisinopril Allergy Hives Verified 01/25/22 06:37 losartan [From Cozaar] Allergy Unknown Verified 01/25/22 06:37 - Social History Does the pt smoke?: No Smoking Status: Never smoker Does the pt drink ETOH?: No Does the pt have substance abuse?: No - Immunizations Immunizations are current?: Yes - POLST Patient has POLST: No PD ED PE NORMAL - Vitals Vital signs reviewed: Yes - General General: Alert and oriented X 3, No acute distress, Well developed/nourished - HEENT HEENT: Atraumatic, PERRL, EOMI, Moist mucous membranes - Neck Neck: Supple, no meningeal sign - Cardiac Cardiac: No murmur, Strong equal pulses, Other (Irregular rate and rhythm, tachycardic.) - Respiratory Respiratory: No respiratory distress, Clear bilaterally - Abdomen Abdomen: Soft, Non tender, Non distended - Derm Derm: Normal color, Warm and dry, No rash - Extremities Extremities: No deformity, No edema - Neuro Neuro: Alert and oriented X 3, Other (Grossly intact) - Psych Psych: Normal mood, Normal affect Results - Vitals Vitals: Oxygen O2 Source Room air - EKG (time done) 0624 Rate: Rate (enter#) (149) Rhythm: Atrial fibrillation [place]: Normal Intervals: Normal [place] QRS: Normal Ischemia: Normal ST segments Compare to prior EKG: Old EKG unavailable Computer interpretation: Agree with computer - Labs Labs: Laboratory Tests 01/25/22 01/25/22 06:42 06:42 WBC 4.2 L RBC 5.13 Hgb 16.3 Hct 48.4 MCV 94.3 H MCH 31.8 H MCHC 33.7 RDW 11.9 L Plt Count 225 MPV 9.5 Neut # (Auto) 2.1 Lymph # (Auto) 1.6 [place] # (Auto) 0.4 Eos # (Auto) 0.1 Baso # (Auto) 0.0 Absolute Nucleated RBC 0.00 Nucleated RBC % 0.0 Sodium 140 Potassium 3.9 Chloride 105 Carbon Dioxide 26 Anion Gap 9.0 BUN 21 H Creatinine 0.8 Estimated GFR (MDRD) 94 Glucose 132 H Calcium 9.4 PD MEDICAL DECISION MAKING - ED course Complexity details: reviewed results, re-evaluated patient, considered differential, d/w patient ED course: The patient was initially treated with IV diltiazem 15 mg by my colleague prior to my arrival with some improvement but continuing to be in A. fib with RVR. The patient's rate ranged from the 110's to the 130s when I interviewed and examined him. He was then given IV diltiazem 25 mg as well as an oral dose of long-acting diltiazem 240 mg and flecainide 100 mg. The pt did remain in atrial fibrillation, but responded well to the second round of medications, and remained rate-controlled for the following 2 hours. I felt he was stable for d/c. The pt is already anticoagulated on Xarelto, and I will give him a bridging prescription for his Flecainide. 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 We have discussed the usual indications for return. Departure - Departure Disposition: 01 Home, Self Care Clinical Impression: Atrial fibrillation with rapid ventricular response Condition: Stable Instructions: ED Afib Prescriptions: Flecainide [Tambocar] 100 mg PO Q12H #14 tablet Comments: Your labs look good. Your heart rate has responded well to the medication we have given you, and hopefully, this will give your heart a chance to ultimately go back into a normal sinus rhythm. It may take some serial doses of flecainide to do this, and so it is important that you get back on the flecainide as soon as possible. I have given you a prescription for a week's worth of your flecainide to bridge any further delay in getting your normal prescription refill. Please get this filled today and take your next dose this afternoon. If you feel that you are not converting back to normal rhythm even after being back on the flecainide For couple of days, please call your theatrical variety agent to make the next possible appointment to follow-up. Discharge Date/Time: 01/25/22 10:22
[2022-01-25 10:22] VITALS: BP 145/83
== END 2022-01-25 10:22 | disposition home or self-care (01) ==
LOC: ED 06:19
DX: I48.91 Unspecified atrial fibrillation (principal); T46.2X6A Underdosing of other antidysrhythmic drugs, initial encounter; Z91.138 Patient's unintentional underdosing of medication regimen for other reason; Z79.01 Long term (current) use of anticoagulants
CPT/HCPCS: 36415; 80048; 85025; 93005; 96374; 96376; 99283; 99284; A9270

== ENCOUNTER 2022-10-18 08:29 | Emergency (ER) | payer MEDICARE ==
[2022-10-18 09:03] LABS: BASOPHILS % (AUTO) 0.6 %; EOSINOPHILS # (AUTO) 0.1 10^3/uL (0.0-0.7); EOSINOPHILS % (AUTO) 2.6 %; HGB - HEMOGLOBIN 16.5 g/dL (14.0-18.0); LYMPHOCYTES # (AUTO) 1.2 10^3/uL (1.5-3.5); LYMPHOCYTES % (AUTO) 23.1 %; MEAN CORPUSCULAR HEMOGLOBIN 32.4 pg (27.0-31.0); MEAN CORPUSCULAR HGB CONC 34.4 g/dL (32.0-36.0); MEAN CORPUSCULAR VOLUME 94.1 fL (80.0-94.0); MEAN PLATELET VOLUME 9.1 fL (7.4-11.4); MONOCYTES # (AUTO) 0.5 10^3/uL (0.0-1.0); MONOCYTES % (AUTO) 8.5 %; NEUTROPHILS # (AUTO) 3.5 10^3/uL (1.5-6.6); PLT - PLATELET COUNT 249 10^3/uL (130-450); RED CELL DISTRIBUTION WIDTH 12.5 % (12.0-15.0); WHITE BLOOD COUNT 5.3 x10^3/uL (4.8-10.8)
[2022-10-18 09:07] LABS: CALCIUM 9.2 mg/dL (8.5-10.3); CREATININE 0.8 mg/dL (0.6-1.2); POTASSIUM 3.9 mmol/L (3.5-5.0)
[2022-10-18 10:09] VITALS: BP 143/101
--- NOTE | 2022-10-18 10:24 | ED Physician Documentation ---
PD HPI CHEST PAIN - Stated complaint Stated Complaint: RAPID HEART RATE - Chief complaint Chief Complaint: Cardiac - History obtained from History obtained from: Patient - History of Present Illness Timing - onset: Last night (about midnight) Timing - onset during: Rest Timing - duration: Hours (8) Timing - details: Abrupt onset, Still present (it seemed to convert out of afib just aa patient was checking into the ER/triage.) Quality: Tightness Location: Substernal Associated symptoms: Palpitations (feling heart rate fast and irregular all night since midnight. No chest pain, lightheaded nor confused.) Similar symptoms before: Diagnosis (prior history of atrial fib, but has been few years since last episode. He had had some wine at a birthday green party among friends last evening. Also having stress this week with his being sick.) Review of Systems Constitutional: denies: Fever, Chills Nose: denies: Rhinorrhea / runny nose, Congestion Throat: denies: Sore throat Cardiac: denies: Pedal edema, Calf pain Respiratory: denies: Cough Neurologic: denies: Generalized weakness, Near syncope, Altered mental status PD PAST MEDICAL HISTORY - Past Medical History Cardiovascular: Hypertension, High cholesterol, Atrial fibrillation, Other Respiratory: None Neuro: None Endocrine/Autoimmune: None GI: None : None HEENT: None Psych: None Musculoskeletal: Osteoarthritis Derm: None - Past Surgical History Past Surgical History: No General: Other Ortho: Knee replacement, Other - Present Medications Home Medications: Ambulatory Orders Medication Instructions Recorded Confirmed Flecainide [Tambocar] 100 mg PO BID 02/02/15 10/08/21 Felodipine [Felodipine ER] 10 mg PO DAILY 02/21/18 10/08/21 Levothyroxine [Synthroid] 112 mcg PO QDAC 02/21/18 10/08/21 Rivaroxaban [Xarelto] 20 mg PO DAILY 10/08/21 10/08/21 Flecainide [Tambocar] 100 mg PO Q12H #14 tablet 01/25/22 - Allergies Allergies/Adverse Reactions: Allergies Allergy/AdvReac Type Severity Reaction Status Date / Time lisinopril Allergy Hives Verified 01/25/22 06:37 losartan [From Cozaar] Allergy Unknown Verified 01/25/22 06:37 - Social History Does the pt smoke?: No Smoking Status: Never smoker Does the pt drink ETOH?: No Does the pt have substance abuse?: No - Immunizations Immunizations are current?: Yes - POLST Patient has POLST: No PD ED PE NORMAL - Vitals Vital signs reviewed: Yes - General General: Alert and oriented X 3, No acute distress, Well developed/nourished - Neck Neck: Supple, no meningeal sign, No adenopathy - Cardiac Cardiac: RRR (he is in sinus rhythm on monitor here. ), No murmur - Respiratory Respiratory: Clear bilaterally - Abdomen Abdomen: Soft, Non tender - Derm Derm: Normal color, Warm and dry - Extremities Extremities: No edema, No calf tenderness / cord - Neuro Neuro: Alert and oriented X 3, No motor deficit, Normal speech Results - Vitals Vitals: Vital Signs - 24 hr 10/18/22 10/18/22 08:37 10:05 Temperature 37.2 C Heart Rate 75 59 L Respiratory 18 18 Rate Blood Pressure 137/85 H 143/101 H O2 Saturation 98 100 Oxygen O2 Source Room air - EKG (time done) 08:41 EKG releavant findings:: EKG personally interpreted by author of this note. Relevant findings are: Rate: Rate (enter#) (59) Rhythm: NSR [place]: Normal Intervals: Normal [place] QRS: Normal Ischemia: Normal ST segments. No: ST elevation c/w ischemia, ST depression - Labs Labs: Laboratory Tests 10/18/22 10/18/22 08:53 08:53 WBC 5.3 RBC 5.10 Hgb 16.5 Hct 48.0 MCV 94.1 H MCH 32.4 H MCHC 34.4 RDW 12.5 Plt Count 249 MPV 9.1 Neut # (Auto) 3.5 Lymph # (Auto) 1.2 L [place] # (Auto) 0.5 Eos # (Auto) 0.1 Baso # (Auto) 0.0 Absolute Nucleated RBC 0.00 Nucleated RBC % 0.0 Sodium 141 Potassium 3.9 Chloride 106 Carbon Dioxide 27 Anion Gap 8.0 BUN 20 Creatinine 0.8 Estimated GFR (MDRD) 94 Glucose 137 H Calcium 9.2 Magnesium 2.0 PD Medical Decision Making - ED course Complexity details: considered differential (prolonged episode of atrial fib and has been several years since episode. He waited at home to see if improved. Took extra Tambicor. 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 However 8 hours still with symptoms, until it converted just checking in.), d/w patient Departure - Departure Disposition: 01 Home, Self Care Clinical Impression: Paroxysmal atrial fibrillation with rapid ventricular response Condition: Stable Record reviewed to determine appropriate education?: Yes Follow-Up: CARLOS ENRIQUE ROA ARNP [Primary Care Provider] - Comments: You have gotten back into a normal rhythm with the medications you have taken. You seem to be maintaining into sinus rhythm. Your basic blood tests of electrolytes and blood count are good. Stay well-hydrated the day. Continue usual medications. Return if needed. Discharge Date/Time: 10/18/22 10:33
== END 2022-10-18 10:33 | disposition home or self-care (01) ==
LOC: ED 08:29
DX: I48.0 Paroxysmal atrial fibrillation (principal); I10 Essential (primary) hypertension
CPT/HCPCS: 36415; 80048; 83735; 85025; 93005; 99283; 99284

== ENCOUNTER 2022-10-22 07:25 | Outpatient (CLI) | payer MEDICARE ==
[2022-10-22 14:48] LABS: CREATININE 0.9 mg/dL (0.6-1.2)
== END 2022-10-22 07:26 | disposition home or self-care (01) ==
LOC: LAB.S 07:25
PROVIDERS: ATTEND Internal Medicine Clinical Cardiac Electrophysiology
DX: Z79.01 Long term (current) use of anticoagulants (principal)
CPT/HCPCS: 36415; 82565

== ENCOUNTER 2023-10-09 12:10 | Emergency (ER) | payer MEDICARE ==
[2023-10-09 12:36] LABS: BASOPHILS # (AUTO) 0.1 10^3/uL (0.0-0.1); BASOPHILS % (AUTO) 0.9 %; EOSINOPHILS # (AUTO) 0.2 10^3/uL (0.0-0.7); EOSINOPHILS % (AUTO) 2.5 %; HCT - HEMATOCRIT 51.4 % (42.0-52.0); LYMPHOCYTES # (AUTO) 2.7 10^3/uL (1.5-3.5); LYMPHOCYTES % (AUTO) 34.1 %; MEAN CORPUSCULAR HEMOGLOBIN 31.3 pg (27.0-31.0); MEAN CORPUSCULAR HGB CONC 33.1 g/dL (32.0-36.0); MEAN CORPUSCULAR VOLUME 94.7 fL (80.0-94.0); MEAN PLATELET VOLUME 8.9 fL (7.4-11.4); MONOCYTES # (AUTO) 0.8 10^3/uL (0.0-1.0); MONOCYTES % (AUTO) 9.7 %; NEUTROPHILS # (AUTO) 4.2 10^3/uL (1.5-6.6); NEUTROPHILS % (AUTO) 52.4 %; PLT - PLATELET COUNT 294 10^3/uL (130-450); RED BLOOD COUNT 5.43 10^6/uL (4.70-6.10); WHITE BLOOD COUNT 7.9 x10^3/uL (4.8-10.8)
[2023-10-09] MEDS ORDERED: diltiaZEM INJ 5 MG/ML VIAL ONE (12:40)
[2023-10-09] MEDS: diltiaZEM INJ 5 MG/ML VIAL IVP STA (12:41)
--- NOTE | 2023-10-09 12:46 | ED Physician Documentation ---
History of Present Illness - Stated complaint Stated Complaint: FAST HEART BEAT - Chief complaint Chief Complaint: Cardiac - History obtained from History obtained from: Patient - History of Present Illness Timing: Today Pain level max: 0 Pain level now: 0 - Additonal information Additional information: 77-year-old male with a history of paroxysmal atrial fibrillation presents to the emergency department with feeling like he is back in A-fib today. Complains of a racing heartbeat. No chest pain. No shortness of breath. He states he took 3 tablets of his flecainide this morning but was still having the feeling of palpitations so decided to come into the emergency department. He states diltiazem has worked well for him in the past. He had a pacemaker placed in May of this year. He states that his mechanical manager is through [employer], does not know the name. No recent illnesses, fevers, chills. Nothing makes it better or worse. Review of Systems Constitutional: denies: Fever, Chills Nose: denies: Rhinorrhea / runny nose, Congestion Throat: denies: Sore throat Cardiac: reports: Palpitations. denies: Chest pain / pressure, Calf pain GI: denies: Vomiting, Diarrhea Skin: denies: Rash Musculoskeletal: denies: Neck pain, Back pain Neurologic: denies: Headache PD PAST MEDICAL HISTORY - Past Medical History Past Medical History: Yes Cardiovascular: Hypertension, High cholesterol, Atrial fibrillation, Other Respiratory: None Neuro: None Endocrine/Autoimmune: None GI: None : None HEENT: None Psych: None Musculoskeletal: Osteoarthritis Derm: None - Past Surgical History Past Surgical History: No General: Other Ortho: Knee replacement, Other Cardiovascular: Pacemaker - Present Medications Home Medications: Ambulatory Orders Medication Instructions Recorded Confirmed Flecainide [Tambocar] 100 mg PO BID 02/02/15 10/08/21 Felodipine [Felodipine ER] 10 mg PO DAILY 02/21/18 10/08/21 Levothyroxine [Synthroid] 112 mcg PO QDAC 02/21/18 10/08/21 Rivaroxaban [Xarelto] 20 mg PO DAILY 10/08/21 10/08/21 Flecainide [Tambocar] 100 mg PO Q12H #14 tablet 01/25/22 - Allergies Allergies/Adverse Reactions: Allergies Allergy/AdvReac Type Severity Reaction Status Date / Time lisinopril Allergy Hives Verified 10/09/23 12:14 losartan [From Cozaar] Allergy Unknown Verified 10/09/23 12:14 - Social History Does the pt smoke?: No Smoking Status: Never smoker Does the pt drink ETOH?: No Does the pt have substance abuse?: No - Immunizations Immunizations are current?: Yes - POLST Patient has POLST: No PD ED PE NORMAL - Vitals Vital signs reviewed: Yes - General General: Alert and oriented X 3, No acute distress - HEENT HEENT: PERRL, Moist mucous membranes - Neck Neck: Supple, no meningeal sign - Cardiac Cardiac: Other (Tachycardic, irregular) - Respiratory Respiratory: No respiratory distress, Clear bilaterally - Abdomen Abdomen: Soft, Non tender, Non distended - Derm Derm: Warm and dry - Extremities Extremities: No edema - Neuro Neuro: Alert and oriented X 3 - Psych Psych: Normal mood, Normal affect Results - Vitals Vitals: Vital Signs - 24 hr 10/09/23 10/09/23 10/09/23 12:14 12:53 13:23 Temperature 36.8 C Heart Rate 110 H 94 97 Respiratory 16 17 16 Rate Blood Pressure 159/94 H 108/70 120/80 O2 Saturation 99 97 96 10/09/23 13:30 Temperature Heart Rate Respiratory 16 Rate Blood Pressure O2 Saturation Oxygen O2 Source Room air - EKG (time done) 1218 EKG releavant findings:: EKG personally interpreted by author of this note. 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 Ischemia: Non specific changes - Labs Labs: Laboratory Tests 10/09/23 10/09/23 12:30 12:30 WBC 7.9 RBC 5.43 Hgb 17.0 Hct 51.4 MCV 94.7 H MCH 31.3 H MCHC 33.1 RDW 12.0 Plt Count 294 MPV 8.9 Neut # (Auto) 4.2 Lymph # (Auto) 2.7 [place] # (Auto) 0.8 Eos # (Auto) 0.2 Baso # (Auto) 0.1 Absolute Nucleated RBC 0.00 Nucleated RBC % 0.0 Sodium 140 Potassium 3.9 Chloride 104 Carbon Dioxide 27 Anion Gap 9.0 BUN 22 H Creatinine 1.0 Estimated GFR (MDRD) 73 L Glucose 130 H Calcium 10.8 H Total Bilirubin 0.5 AST 19 ALT 22 Alkaline Phosphatase 62 Troponin I High Sens 10.7 Total Protein 8.4 Albumin 4.8 Globulin 3.6 Albumin/Globulin Ratio 1.3 Lipase 19 - Rads (name of study) cxr Relevant Findings:: Final report received, See rad report PD Medical Decision Making - ED course Complexity details: reviewed results, re-evaluated patient, considered differential, d/w patient ED course: 77-year-old male with atrial fibrillation with rapid ventricular response. Given diltiazem. Heart rate decreased. Symptoms resolved. He stayed rate controlled while in the emergency department. Patient also remained asymptomatic. He is comfortable going home at this time and following up with his doctor for further care. He does seem to go in and out of atrial fibrillation. No syncope or near syncope. No chest pain. No significant lab abnormalities. Patient counseled regarding signs and symptoms for which I believe and urgent re-evaluation would be necessary. Patient with good understanding of and agreement to plan and is comfortable going home at this time This document was made in part using voice recognition software. While efforts are made to proofread this document, sound alike and grammatical errors may occur. Departure - Departure Disposition: 01 Home, Self Care Clinical Impression: Atrial fibrillation with RVR Condition: Good Instructions: ED Afib Follow-Up: Nancie Sewell ARNP [Primary Care Provider] - Within 1 week Comments: Please follow-up with your doctor for further care. You are in atrial fibrillation, but your heart rate is controlled. You were given diltiazem and this seemed to work well for you. Will discuss with your doctor and/or mechanical manager whether a prescription of diltiazem to have at home is reasonable for you when the symptoms occur. Please return if you worsen. Forms: PCP List Discharge Date/Time: 10/09/23 14:15
[2023-10-09 12:51] LABS: ALBUMIN 4.8 g/dL (3.2-5.5); ALBUMIN/GLOBULIN RATIO 1.3 (1.0-2.2); BILIRUBIN,TOTAL 0.5 mg/dL (0.2-1.0); CALCIUM 10.8 mg/dL (8.5-10.3); POTASSIUM 3.9 mmol/L (3.5-4.5); TOTAL PROTEIN 8.4 g/dL (6.4-8.9)
[2023-10-09 12:57] LABS: TROPONIN I HIGH SENSITIVITY 10.7 ng/L (2.3-19.7)
[2023-10-09] MEDS: diltiaZEM 30 MG TABLET PO STA (13:34)
[2023-10-09 13:43] VITALS: BP 120/80; O2SAT 96
--- NOTE | 2023-10-09 14:07 | XRAY Report ---
PROCEDURE: Chest 1V INDICATIONS: Chest pain TECHNIQUE: One view of the chest was acquired. COMPARISON: None. FINDINGS: Surgical changes and devices: Left chest wall cardiac device with leads in right atrium and right ve ntricle. Resuscitation device overlies patient. Lungs and pleura: No pleural effusions or pneumothorax. Lungs are clear. Mediastinum: Mediastinal contours appear normal. Heart size is normal. Bones and chest wall: No suspicious bony lesions. Overlying soft tissues appear unremarkable. IMPRESSION: No acute cardiopulmonary process. Reviewed by: Curry Arevalo MD on 10/09/2023 1:06 PM [facility] Approved by: Curry Arevalo MD on 10/09/2023 1:06 PM [facility] Station ID: [id number]
== END 2023-10-09 14:15 | disposition home or self-care (01) ==
LOC: SUPCPDRO 12:10 → ED 12:10
DX: I48.91 Unspecified atrial fibrillation (principal); I48.92 Unspecified atrial flutter; I45.2 Bifascicular block; I10 Essential (primary) hypertension; Z79.01 Long term (current) use of anticoagulants; Z95.0 Presence of cardiac pacemaker
CPT/HCPCS: 36415; 71045; 80053; 83690; 84484; 85025; 93005; 96374; 99284; A9270

== ENCOUNTER 2024-01-27 11:04 | Outpatient (CLI) | payer MEDICARE ==
--- NOTE | 2024-01-29 11:09 | XRAY Report ---
PROCEDURE: Knee 3V RT INDICATIONS: RT KNEE JOINT PAIN TECHNIQUE: 3 views of the knee(s) were acquired. COMPARISON: None. FINDINGS: Bones: No fractures or dislocations. No suspicious bony lesions. Mild tricompartmental osteoarthrit is. Soft tissues: No knee joint effusion. No suspicious soft tissue calcifications or masses. IMPRESSION: Mild tricompartmental osteophytosis. Reviewed by: Samara Webb MD, PhD on 01/29/2024 11:08 AM PDT Approved by: Samara Webb MD, PhD on 01/29/2024 11:08 AM PDT Station ID: [id number]
== END 2024-01-27 11:05 | disposition home or self-care (01) ==
LOC: DI.S 11:04
PROVIDERS: ATTEND Nurse Practitioner Family
DX: M17.11 Unilateral primary osteoarthritis, right knee (principal)